=== PATIENT | male | born 1945 | race Two or more races ===

== ENCOUNTER 2018-12-02 07:26 | Outpatient (CLI) | payer OTHER ==
[~2018-12-02 07:26] MED LIST: CEFADROXIL500 MG PO; CREON DR 6,0001 EACH; KEPPRA500 MG; NORVASC5 MG; PLAVIX75 MG; PNEU16DI2; SYNTHROID125 MCG; TENORMIN50 M1; TRILIPIX135 MG; ZOCOR20 MG; ZYLOPRIM300 MG
== END 2018-12-02 07:41 | disposition home or self-care (01) ==
LOC: TOM 07:26
DX: K86.1 Other chronic pancreatitis (principal)
CPT/HCPCS: 74170; Q9965

== ENCOUNTER 2019-03-02 10:34 | Outpatient (CLI) | payer OTHER | END 2019-03-02 10:36 | disposition home or self-care (01) | LOC: RAD 10:34 | DX: K86.89 Other specified diseases of pancreas (principal) ==

== ENCOUNTER → 2019-09-12 | Outpatient (CLI) | payer OTHER | END | disposition home or self-care (01) | LOC: MAMO-SONO 11-03 09:15 → RAD 10:47 | DX: G89.11 Acute pain due to trauma (principal) ==

== ENCOUNTER 2019-10-21 07:58 | Outpatient (CLI) | payer OTHER | END 2019-10-21 08:17 | disposition home or self-care (01) | LOC: NUCLEAR 07:58 | DX: I11.9 Hypertensive heart disease without heart failure (principal); E03.8 Other specified hypothyroidism; E78.00 Pure hypercholesterolemia, unspecified; I70.293 Other atherosclerosis of native arteries of extremities, bilateral legs | CPT/HCPCS: 78452; 93017; A9500 ==

== ENCOUNTER 2020-04-06 10:36 | Outpatient (CLI) | payer OTHER | END 2020-04-06 10:44 | disposition home or self-care (01) | LOC: RAD 10:36 | PROVIDERS: ATTEND Internal Medicine Cardiovascular Disease | DX: R05 Cough (principal); I11.9 Hypertensive heart disease without heart failure; M54.5 Low back pain; M53.3 Sacrococcygeal disorders, not elsewhere classified ==

== ENCOUNTER 2024-05-11 14:18 | Emergency (ER) | payer OTHER ==
[~2024-05-11] VITALS: Ht 172.7 cm; Wt 77.1 kg
[~2024-05-11 14:18] MED LIST changes: +AMLODIPINE; +AMLODIPINE BESYL5 MG; +CLORAZEPATE D3.75 MG PO; +COZAAR PO; +COZAAR25 MG; +ELIQUIS2.5 MG PO; +KAPSPARGO SPRIN25 MG PO; +KEPPRA XR750 MG; +KEPPRA750 MG; +LASIX20 MG PO; +LEVOXYL137 MCG PO; +LOSARTAN POTASS25 MG; +MAGNESIUM200 MG PO; +NASAL MIST126 ML; +NORVASC 5MG TAB PO; +NORVASC2.5 M1; +PLAVIX 75MG PO; +POLY119PG PO; +POM (MEDICAMENTO EN PISO) PO; +PREVACID15 M1 PO; +SIMVASTATIN40 MG; +SYNTHROID150 MCG PO; +SYNTHROID175 MCG; +Synthroid 125MCG TABLET PO; +TAMS0.4C PO; +TENORMIN50 M1 PO; +TRADJENTA5 MG; +XOPENEX0.63 MG/3 IH; +ZYLOPRIM100 M1 PO; +ZoCOR 20MG TABLET PO
[2024-05-11] MEDS ORDERED: FAMOtidine 10 MG/ML (4ML VIAL) IV STA (15:19)
[2024-05-11] MEDS ORDERED: FAMOTIDINE/PF 20 MG/2 ML VIAL ONE (15:22)
[2024-05-11 15:48] LABS: HEMATOCRIT 32.3 % (39.0-48.0); HEMOGLOBIN 11.1 g/dL (13-16.00); MEAN CELL VOLUME 91.4 fL (80.0-100.00); MEAN CORPUSCULAR HEMOGLOBIN 31.3 pg (27.00-32.0); MEAN CORPUSCULAR HGB CONC 34.2 g/dl (32.0-36.0); PLATELET COUNT 271 K/uL (150-450); RED BLOOD COUNT 3.53 M/uL (4.00-6.00); RED CELL DISTRIBUTION WIDTH 14.5 % (11.5-14.5)
[2024-05-11 15:59] LABS: PH,URINE 5.5 (5.0-8.0); URINE APPEARANCE Clear; URINE BILIRRUBIN Negative (NEGATIVE); URINE BLOOD Negative; URINE COLOR Yellow; URINE GLUCOSE Negative (NEGATIVE); URINE KETONE Negative (NEGATIVE); URINE LEUKOCYTE Negative; URINE NITRATE Negative; URINE UROBILINOGEN 0.2 E.U./dl
[2024-05-11 16:02] LABS: URINE BACTERIA 32.6 uL (0.0-1933); URINE EPITHELIAL CELLS 6.4 uL (0.0-38.8); URINE RBC 6.4 uL (0.0-20.8); URINE WBC 14.5 uL (0.0-23.2)
[2024-05-11 16:05] LABS: URINE CAST 0.45 uL (0.0-1.40); URINE PROTEIN 300 (NEGATIVE)
[2024-05-11 16:10] LABS: ALKALINE PHOSPHATASE 124 U/L (50-136); ALT/SGPT 17 U/L (12-78); ANION GAP 9 (10.0-20.0); AST/SGOT 16 U/L (15-37); BILIRUBIN TOTAL 0.15 mg/dL (0.3-1.2); BILIRUBIN,CONJUGATED < 0.10 mg/dL (0.0-0.2); BILIRUBIN,UNCONJUGATED 0.05 mg/dL (0.0-0.6); BLOOD UREA NITROGEN 50 mg/dL (7-18); BUN CREA RATIO 29 (7.0-25.0); CALCIUM 8.8 mg/dL (8.5-10.1); CARBON DIOXIDE 25 mEq/L (21-32); CHLORIDE 111 mmol/L (98-107); CREATININE SERUM 1.75 mg/dL (0.70-1.30); GFR 37.88; GLUCOSE FASTING 177 mg/dL (65-100); OSMOLALITY SERUM 297 MOSM/KG (275-295); POTASSIUM 4.62 mEq/L (3.5-5.1); SODIUM 140 mmol/L (136-145); TOTAL PROTEIN 7.3 gm/dL (6.4-8.2)
[2024-05-11] MEDS ORDERED: 0.9 % SODIUM CHLORIDE 1,000 ML IV STA (16:33)
[2024-05-11] MEDS ORDERED: ANUSOL-HC30 G2 TOP (18:18)
== END 2024-05-11 19:34 | disposition home or self-care (01) ==
LOC: ER 14:18
PROVIDERS: General Practice
DX: K64.8 Other hemorrhoids (principal); I50.9 Heart failure, unspecified; Z85.118 Personal history of other malignant neoplasm of bronchus and lung
CPT/HCPCS: 36415; 96365; 96366; 99283; J3490

== ENCOUNTER 2024-05-12 10:41 | Emergency (ER) | payer OTHER ==
[~2024-05-12] VITALS: Ht 172.7 cm; Wt 76.7 kg
[~2024-05-12 10:41] MED LIST changes: +ANUSOL-HC30 G2 TOP
[2024-05-12] MEDS ORDERED: 0.9 % SODIUM CHLORIDE 1,000 ML IV SCH (11:15)
[2024-05-12 11:47] LABS: HEMATOCRIT 33.4 % (39.0-48.0); HEMOGLOBIN 11.3 g/dL (13-16.00); MEAN CELL VOLUME 92.2 fL (80.0-100.00); MEAN CORPUSCULAR HEMOGLOBIN 31.1 pg (27.00-32.0); MEAN CORPUSCULAR HGB CONC 33.7 g/dl (32.0-36.0); PLATELET COUNT 259 K/uL (150-450); RED BLOOD COUNT 3.62 M/uL (4.00-6.00); RED CELL DISTRIBUTION WIDTH 14.6 % (11.5-14.5)
[2024-05-12 12:28] LABS: INR 1.08; PARTIAL THROMBOPLASTIN TIME 35.8 SECONDS (22.0-34.0); PROTHROMBIN TIME 11.3 SECONDS (9.0-11.5)
[2024-05-12 12:56] LABS: PH,URINE 5.5 (5.0-8.0); URINE APPEARANCE Clear; URINE BILIRRUBIN Negative (NEGATIVE); URINE BLOOD Negative; URINE COLOR Yellow; URINE GLUCOSE Negative (NEGATIVE); URINE KETONE Negative (NEGATIVE); URINE LEUKOCYTE Trace; URINE NITRATE Negative; URINE UROBILINOGEN 0.2 E.U./dl
[2024-05-12 13:02] LABS: CALCIUM 9.3 mg/dL (8.5-10.1); CREATININE SERUM 1.71 mg/dL (0.70-1.30); GFR 38.91; POTASSIUM 4.82 mEq/L (3.5-5.1)
[2024-05-12 13:02] LABS: URINE BACTERIA 59.1 uL (0.0-1933); URINE EPITHELIAL CELLS 20.3 uL (0.0-38.8); URINE WBC 75.4 uL (0.0-23.2)
[2024-05-12 13:11] LABS: URINE PROTEIN 300 (NEGATIVE)
== END 2024-05-12 14:11 | disposition home or self-care (01) ==
LOC: ER 10:41
PROVIDERS: Emergency Medicine
DX: K64.8 Other hemorrhoids (principal); R07.89 Other chest pain; I10 Essential (primary) hypertension; E03.9 Hypothyroidism, unspecified
CPT/HCPCS: 36415; 93005; 96365; 99283; J3490

== ENCOUNTER 2024-06-07 11:12 | Outpatient (CLI) | payer OTHER | END 2024-06-07 13:50 | disposition home or self-care (01) | LOC: MRI 11:12 → TOM 11:12 | PROVIDERS: ATTEND Internal Medicine | DX: M54.50 Low back pain, unspecified (principal) ==

== ENCOUNTER 2024-06-17 07:55 | Outpatient (CLI) | payer OTHER | END 2024-06-17 07:57 | disposition home or self-care (01) | LOC: NUCLEAR 07:55 | PROVIDERS: ATTEND Internal Medicine Endocrinology, Diabetes & Metabolism | DX: C34.10 Malignant neoplasm of upper lobe, unspecified bronchus or lung (principal) | CPT/HCPCS: 78815; A9552 ==